=== PATIENT | male | born 1965 | race Caucasian/White ===

== ENCOUNTER 2019-01-28 12:52 | Emergency (ER) | payer MEDICARE, MEDICAID, SELFPAY ==
--- NOTE | ~2019-01-28 | XR_ITS ---
EXAMINATION: XR ribs RT 2V w CXR 2V INDICATION: Cough and fever TECHNIQUE: Frontal and lateral views of the chest and 3 views of the right ribs were obtained. COMPARISON: 06/21/2018 FINDINGS: The lungs are free of acute opacities. There is no pleural effusion or pneumothorax. Median sternotomy wires and mediastinal surgical clips are seen, likely from prior coronary artery bypass g rafting. No displaced rib fracture is identified. The visualized bones and soft tissues are unremarka ble. IMPRESSION: 1. No acute cardiopulmonary abnormality or evidence of displaced rib fracture. Reviewed, dictated and finalized at location A. INED RAIL OPERATOR
[2019-01-28 13:11] VITALS: BP 169/104; PULSE 123; RESP 23; TEMP 36.3; O2SAT 97
[2019-01-28 13:44] LABS: Basophils Percent Auto 0.3 % (0.2-1.2); Eosinophils Absolute Auto 0.1 K/mm3 (0-0.3); Eosinophils Percent Auto 1.1 % (0-4.4); Hematocrit 44.3 % (42.0-52.0); Hemoglobin 15.3 g/dL (14.0-18.0); Immature Granulocyte Absolute 0.05 K/mm3 (0.00-0.031); Immature Granulocyte Percent A 0.5 % (0-0.5); Lymphocytes Absolute Auto 2.24 K/mm3 (0.9-3.2); Lymphocytes Percent Auto 21.2 % (18.3-44.2); Mean Corpuscular HGB Conc 34.5 g/dl (32-36); Mean Corpuscular Hemoglobin 32.8 pg (26-34); Mean Corpuscular Volume 94.9 fl (80-100); Mean Platelet Volume 11.6 fl (7.4-10.4); Monocytes Percent Auto 9.8 % (2.6-8.5); Neutrophils Absolute Auto 7.1 K/mm3 (1.3-6.7); Neutrophils Percent Auto 67.1 % (45.5-73.1); Platelet Count Result 109 k/mm3 (150-375); Red Blood Count 4.67 M/mm3 (4.6-6.20); White Blood Count 10.6 K/mm3 (4.5-10.0)
[2019-01-28 13:55] LABS: Alanine Aminotransferase 44 U/L (4-50); Albumin Level 4.6 g/dL (3.5-5.1); Alkaline Phosphatase 95 U/L (38-126); Aspartate Amino Transferase 78 U/L (17-59); Bilirubin,Total 1.5 mg/dL (0.2-1.3); Blood Urea Nitrogen 24 mg/dL (9-20); Calcium 10.1 mg/dL (8.4-10.2); Carbon Dioxide 24 mmol/L (22-30); Chloride 89 mmol/L (98-107); Estimated Glomerular Filt Rate > 60; Glucose 72 mg/dL (75-110); Sodium 132 mmol/L (137-145)
[2019-01-28 15:18] VITALS: BP 134/82; PULSE 117; RESP 21; O2SAT 99
--- NOTE | 2019-01-28 15:35 | ED.GENADULT ---
HPI - General Adult General Chief complaint: Weakness Stated complaint: COLD S/SX Time Seen by Provider: 01/28/19 15:15 Source: patient and RN notes reviewed Mode of arrival: ambulatory Limitations: no limitations History of Present Illness HPI narrative: Pt is a 53 y/o male who presents to the ED with c/o a fall which occurred 2 days ago. Pt states he tripped and fell onto a coffee table, which is causing rib pain. Pt denies knowing if he lost consciousness or not. He reports diaphoresis, chills, a subjective fever, rhinorrhea, a productive cough which is baseline for him, LUQ ABD pain, vomiting, and diarrhea, but denies a sore throat, changes in vision, changes in hearing, or a headache. Pt also reports having hallucinations. He states he will see something out of his peripheral, but when he looks over to see what it is, there is nothing actually there. He denies having any suicidal or homicidal thoughts. Pt reports having a prosthetic hip surgery, a nasal surgery, and a CABG. He reports drinking occasionally, but denies heavily since 2010 and also denies the use of any drugs. complaint: A fall Onset (ago): day(s) (occurred 2 days ago) Radiation: non-radiation Associated symptoms: cough (productive), diaphoresis, fever/chills, nausea/vomiting and other (rhinorrhea; LUQ ABD pain; diarrhea; rib pain) Related Data Home Medications Medication Instructions Recorded Confirmed aspirin 81 mg tablet,delayed 81 mg PO DAILY 01/17/19 release furosemide 20 mg tablet 20 mg PO DAILY tablet 01/17/19 metoprolol tartrate 25 mg tablet 25 mg PO BID tablet 01/17/19 multivitamin 1 tablet PO DAILY 01/17/19 atorvastatin 01/28/19 Allergies Allergy/AdvReac Type Severity Reaction Status Date / Time No Known Allergies Allergy Verified 07/15/18 09:19 Review of Systems Review of Systems: All systems reviewed & are unremarkable except as noted in HPI and below Constitutional: Constitutional: Reports chills and Reports fever(s) (subjective) Eyes: Eyes: Denies change in vision ENT: Reports hearing normal (denies changes in hearing), Reports nasal discharge and Denies sore throat Cardiovascular: Cardiovascular: Reports diaphoresis Respiratory: Respiratory: Reports cough (productive cough which is normal for his baseline) Gastrointestinal: Gastrointestinal: Reports abdominal pain (LUQ ABD pain), Reports diarrhea and Reports vomiting Musculoskeletal: Musculoskeletal: Reports other (rib pain) Neurologic: Denies headache(s) Psychiatric: Psychiatric: Denies homicidal ideation and Denies suicidal ideation PMFSH Social History Social History Smoking status: Current every day smoker Tobacco type: cigarettes Second hand tobacco smoke exposure: Yes Alcohol intake: never Gender identity (if verbalized by the patient): Male Exam Narrative: Exam Narrative: GENERAL: Well-appearing, well-nourished, and in no acute distress. HEAD: Normocephalic, atraumatic. ENT: Mucous membranes moist. CHEST: Clear to auscultation. No respiratory distress. No apparent trauma but mild discomfort to the right rib cage. HEART: Tachycardic and regular. Normal peripheral pulses. ABDOMEN: Soft, nontender, nondistended. EXTREMITIES: Normal range of motion. No edema. SKIN: Warm, dry, no rash. NEURO: Alert and oriented x3. PSYCH: No SI/HI, not responding to internal stimuli, reports seeing things at the corners of his eyes.. Course Course Emergency Course: Patient walked out of the ER, likely because he is not getting narcotic pain medication they continue to ask for. Patient is being aggressively hydrated. Blood work otherwise unremarkable. Vital Signs Vital signs: Vital Signs Temperature 97.4 F L 01/28/19 13:11 Pulse Rate 123 H 01/28/19 13:11 Respiratory Rate 23 H 01/28/19 13:11 Blood Pressure 169/104 H 01/28/19 13:11 Pulse Oximetry 97 01/28/19 13:11 Temperature 97.4 F L 1
[2019-01-28] MEDS: SODIUM CHLORIDE 0.9% IV 1,000 ML 999 ML IV CONT (16:05)
[2019-01-28 17:00] LABS: Add Urine Microscopic? YES; Appearance Urine Clear (Clear); Bilirubin Urine Negative (Negative); Blood Urine 1+ (Negative); Color Urine Yellow (Yellow); Glucose Urine UA Negative (Negative); Ketones Urine 2+ mg/dL (Negative); Leukocyte Esterase Ur Negative LEU/UL (Negative); Mucus Urine Rare /lpf; Nitrate Urine Negative (Negative); Protein Urine 1+ mg/dL (Negative); RBC Urine 0-2 /hpf (0-2); Specific Grav Ur 1.017 (1.001-1.035); Urobilinogen Urine Negative mg/dL (<2.0); WBC Urine 0-3
[2019-01-28 17:01] LABS: Amphetamine Screen Urine Negative (Negative); Barbiturate Screen Urine Negative (Negative); Benzodiazepines Screen Urine Negative (Negative); Cannabinoid Screen Urine Negative (Negative); Cocaine Screen Urine Negative (Negative); Methadone Screen Urine Negative (Negative); Opiate Screen Urine Positive (Negative); Phencyclidine Screen Urine Negative (Negative)
== END 2019-01-28 17:26 | disposition left against medical advice (07) ==
PROVIDERS: Emergency Medicine; Emergency Provider Emergency Medicine; PCP Family Medicine
DX: R07.81 Pleurodynia (principal); F17.210 Nicotine dependence, cigarettes, uncomplicated; Z95.1 Presence of aortocoronary bypass graft; R07.89 Other chest pain
CPT/HCPCS: 36415; 71046; 71100; 80053; 80307; 81001; 85025; 87804; 96360; 99283; J7030

== ENCOUNTER 2019-03-28 12:05 | Outpatient (CLI) | payer MEDICARE, SELFPAY ==
--- NOTE | ~2019-03-28 | US_ITS ---
EXAMINATION: US biopsy lymph node DATE: 03/28/2019 12:59 INDICATION: Right supraclavicular lymphadenopathy. TECHNIQUE: The procedure including the risks, benefits, and alternatives was discussed with the patie nt. Risks discussed included bleeding and infection. The patient understood the risks and agreed to p roceed. The skin overlying the right supraclavicular region was prepped and draped in usual sterile f ashion. Anesthetic was administered with 1% lidocaine subcutaneously. An 18 gauge core biopsy needl e was then used to obtain 3 core biopsy specimens under continuous sonographic guidance. The entry si te was cleaned and dressed. There were no immediate complications. FINDINGS: Ultrasound images demonstrate the needle in a large right supraclavicular adrian mass. IMPRESSION: 1. Ultrasound-guided core needle biopsy of a right supraclavicular lymph node. Reviewed, dictated and finalized at location A. RINTENDENT DISTRIBUTION
== END 2019-03-28 12:06 | disposition home or self-care (01) ==
PROVIDERS: PCP Family Medicine; Visit Provider Surgery
DX: R22.1 Localized swelling, mass and lump, neck (principal); R59.1 Generalized enlarged lymph nodes; C7A.8 Other malignant neuroendocrine tumors
CPT/HCPCS: 38505; 76942; 88305; 88342

== ENCOUNTER 2019-04-10 00:53 | Day surgery (SDC) | payer MEDICARE, MEDICAID, SELFPAY ==
[2019-04-06 08:59] VITALS: BMI 31.5
--- NOTE | ~2019-04-10 | XR_ITS ---
EXAMINATION: XR chest port-a-cath/central DATE: 04/10/2019 16:04 INDICATION: Port placement. TECHNIQUE: A single frontal view of the chest was obtained. COMPARISON: Chest 2 views 01/28/2019, chest CT 03/21/2019 FINDINGS: There is a mass in perihilar right upper lobe. A calcified left lung nodule is consistent w ith old granulomatous disease. There is mild atelectasis in left lower lung zone. No pleural effusion or pneumothorax. The heart size is normal. Median sternotomy wires and mediastinal surgical clips ar e seen, likely from prior coronary artery bypass grafting. There is a left internal jugular port with tip in left brachiocephalic vein. There is widening of the superior mediastinum, consistent with lym phadenopathy. IMPRESSION: 1. Port tip in left brachiocephalic vein. 2. Right lung upper lobe mass, consistent with primary bronchogenic carcinoma. 3. Mediastinal lymphadenopathy, consistent with metastatic disease. Reviewed, dictated and finalized at location A. CTOR OF CHANNEL MARKETING
--- NOTE | ~2019-04-10 | XR_ITS ---
EXAMINATION: XR fl guide central line place DATE: 04/10/2019 17:07 INDICATION: Port placement. TECHNIQUE: 5 intraoperative fluoroscopic views of the chest were obtained. I was not present. Fluoros copy exposure time was 55 seconds. COMPARISON: Chest single view 04/10/2019 FINDINGS: Median sternotomy wires and mediastinal surgical clips are seen, likely from prior coronary artery bypass grafting. There is a left internal jugular port with tip in left brachiocephalic vein. There is widening of the superior mediastinum, consistent with lymphadenopathy. IMPRESSION: 1. Port tip in left brachiocephalic vein. 2. Mediastinal lymphadenopathy, consistent with metastatic disease. Reviewed, dictated and finalized at location A. NESS PROCESS MODELER
--- NOTE | 2019-04-10 12:42 | ECG_ITS ---
Measurements Intervals [place] Rate: 99 P: 63 AL: 139 QRS: -5 QRSD: 157 T: 44 QT: 373 QTc: 481 Interpretive Statements SINUS RHYTHM RIGHT BUNDLE BRANCH BLOCK BORDERLINE ST-T WAVE ABNORMALITY- ANTEROLATERAL LEADS BASELINE ARTIFACT- I, II, AVR ABNORMAL ECG Electronically Signed On 04-10-2019 13:59:37 NURSE RN BSN by Marcelino Pope D.O.
[2019-04-10 13:18] LABS: Basophils Percent Auto 0.3 % (0.2-1.2); Eosinophils Percent Auto 0.3 % (0-4.4); Hematocrit 39.2 % (42.0-52.0); Hemoglobin 13.3 g/dL (14.0-18.0); Immature Granulocyte Absolute 0.05 K/mm3 (0.00-0.031); Immature Granulocyte Percent A 0.5 % (0-0.5); Lymphocytes Absolute Auto 1.48 K/mm3 (0.9-3.2); Lymphocytes Percent Auto 13.9 % (18.3-44.2); Mean Corpuscular HGB Conc 33.9 g/dl (32-36); Mean Corpuscular Hemoglobin 33.1 pg (26-34); Mean Corpuscular Volume 97.5 fl (80-100); Mean Platelet Volume 10.6 fl (7.4-10.4); Monocytes Absolute Auto 1.1 K/mm3 (0.1-0.6); Monocytes Percent Auto 10.4 % (2.6-8.5); Neutrophils Percent Auto 74.6 % (45.5-73.1); Platelet Count Result 246 k/mm3 (150-375); Red Blood Count 4.02 M/mm3 (4.6-6.20); Red Cell Distribution Width 14.5 % (11.5-14.5); White Blood Count 10.7 K/mm3 (4.5-10.0)
[2019-04-10 13:30] VITALS: BP 124/72; PULSE 95; RESP 20; TEMP 36.2; O2SAT 94
[2019-04-10 13:30] LABS: Prothrombin Time 12.5 Seconds (11.1-14.7)
--- NOTE | 2019-04-10 13:30 | WPDANESEPP ---
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 Patient Data Age: 53 Gender: M Height: 5 ft 10 in Weight: 97.8 kg Allergies Allergy/AdvReac Type Severity Reaction Status Date / Time No Known Allergies Allergy Verified 04/10/19 13:12 Home Medications Medication Instructions Recorded Confirmed Type aspirin 81 mg tablet,delayed 81 mg PO DAILY 01/17/19 04/10/19 History release metoprolol tartrate 25 mg tablet 25 mg PO BID tablet 01/17/19 04/10/19 History multivitamin 1 tablet PO DAILY 01/17/19 04/10/19 History atorvastatin 20 mg PO DAILY 01/28/19 04/10/19 History tramadol 50 mg tablet 50 mg PO Q4H PRN #90 tablet 03/24/19 04/10/19 Rx Laboratory Tests 04/10/19 04/10/19 12:38 12:38 WBC 10.7 K/mm3 H K/mm3 (4.5-10.0) RBC 4.02 M/mm3 L M/mm3 (4.6-6.20) Hgb 13.3 g/dL L g/dL (14.0-18.0) Hct 39.2 % L % (42.0-52.0) MCV 97.5 fl fl (80-100) MCH 33.1 pg pg (26-34) MCHC 33.9 g/dl g/dl (32-36) RDW 14.5 % % (11.5-14.5) Plt Count 246 k/mm3 D k/mm3 (150-375) MPV 10.6 fl H fl (7.4-10.4) Immature Gran % (Auto) 0.5 % % (0-0.5) Neut % (Auto) 74.6 % H % (45.5-73.1) Lymph % (Auto) 13.9 % L % (18.3-44.2) Chase % (Auto) 10.4 % H % (2.6-8.5) Eos % (Auto) 0.3 % % (0-4.4) Baso % (Auto) 0.3 % % (0.2-1.2) Lymph # (Auto) 1.48 K/mm3 K/mm3 (0.9-3.2) Chase # (Auto) 1.1 K/mm3 H K/mm3 (0.1-0.6) Eos # (Auto) 0.0 K/mm3 K/mm3 (0-0.3) Baso # (Auto) 0.0 K/mm3 K/mm3 (0.0-0.1) Abs Immat Gran (auto) 0.05 K/mm3 H K/mm3 (0.00-0.031) Absolute Neuts (auto) 8.0 K/mm3 H K/mm3 (1.3-6.7) Absolute Nucleated RBC 0.0 K/mm3 K/mm3 (0.0-0.012) Nucleated RBC % 0.0 % % (0.0-0.2) PT Pending INR Pending APTT Pending Patient hx anesthesia problems: none Family hx anesthesia problems: none PMFSH Past Medical History Medical History Anxiety and depression Atherosclerotic heart disease of [place] coronary artery with unspecified angina pectoris Benign essential hypertension COPD (chronic obstructive pulmonary disease) Depression History of heart attack DEVIN (obstructive sleep apnea) Other and unspecified hyperlipidemia Polyosteoarthritis, unspecified Tobacco use disorder Wheezing Surgical History Surgical History History of facial surgery facial reconstruction History of left hip replacement Hx of CABG triple bypass Family History Family History Father Hypertension Family history of lung cancer Patient's father is Mother Hypertension Family history of condition Family history of diabetes mellitus in first degree relative Family history of heart disease in male family member before age 55 Patient's mother is Family history of coronary artery disease [place] Other Cerebrovascular accident Diabetes mellitus Family history of arthritis Family history of malignant neoplasm Social History Social History Smoking status: Current every day smoker Tobacco type: cigarettes Second hand tobacco smoke exposure: Yes Alcohol intake: never Gender identity (if verbalized by the patient): Male Exam Day of Procedure 04/10/19 13:30
[2019-04-10 13:31] LABS: Partial Thromboplastin Time 31.9 SECONDS (22.3-36.8)
--- NOTE | 2019-04-10 13:34 | SUR.PREOP ---
pt presents w/difficulty ambulating/states he fell at home overnight Wednesday night/ bruising noted to mid upper chest above sternum
--- NOTE | 2019-04-10 14:06 | WPDANESEFPP ---
Anes - Eval Final PreProcedure Day of Procedure 04/10/19 14:06 Patient weight: overweight Heart: regular rate and rhythm Lungs: clear to auscultation Airway: Mallampati scale class II Neurological: alert and oriented Last oral intake: >/= 8 hours ASA classification: III Emergent: no Anesthetic plan: proceed Anesthesia type and monitoring: general GIVS and standard monitoring Informed Consent: The patient's anesthetic plan and its attendant risks and benefits were discussed with the patient/family/POA. Questions were solicited and answers provided to the satisfaction of the patient/family/POA.
--- NOTE | 2019-04-10 14:10 | WPDHPUPDATE1 ---
History and Physical Update Update Date/Time: 04/10/19 14:10 History and Physical has been reviewed, including an updated exam of the patient. There are changes in the patient's condition. Patient has not yet been in to see Dr. Alejandro to discuss the neuroendocrine tumor that was discovered by core biopsy of his supraclavicular area last week. Also, he tripped on the steps last weekend and fell and bruised his anterior sternum. He has some bruising on the skin anterior left chest but no other changes. Risks, benefits, and alternatives of placement of a Port-A-Cath me the left jugular route have been discussed and questions answered. Patient agrees to proceed with procedure.
[2019-04-10] MEDS: LACTATED RINGERS 1,000 ML 30 ML IV CONT (14:26)
[2019-04-10] MEDS: ceFAZolin 2 GM/D5W 50 ML 2 GM/50 ML BAG IVPB (14:35)
[2019-04-10] MEDS: BUPIVACAINE/EPINEPHRINE 0.5% 30 ML VIAL 17 ML INFILTRATE (15:04)
--- NOTE | 2019-04-10 15:19 | SUR.OPER ---
SMART PORT LEFT SIDE/LOT [id number], EXP 10-29-21.
[2019-04-10] MEDS: HEPARIN SODIUM 5,000 UNITS/ML VIAL 5000 UNITS IRRIGATION (15:28)
--- NOTE | 2019-04-10 15:48 | PM.PROC ---
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 Patient was brought to the operating room. He was placed supine on the operating table and general IV sedation was induced. The nurse lieutenant colonel provided oxygen and IV sedation. Patient's head was carefully turned to the right side while in the supine position and the patient's entire left neck and anterior chest on both sides was prepped and draped in the usual sterile fashion. Following this the appropriate time-out was completed confirming procedure and patient. We confirmed that all the needed equipment was present in the room. Following this the ultrasound probe was draped into the field and using the probe we carefully identified the carotid artery and jugular vein on the left neck. I marked the skin directly over the Lt. internal jugular vein. Following this, using the continuous ultrasound guidance, a Cook needle was placed through the skin into this vein. I then was able to draw back good dark blood. Once this was completed a guidewire using a J-tip was advanced through the needle and then the needle and the guidewire cover were withdrawn. C-arm fluoroscopy was used to confirm that the guidewire was nicely in the central venous system. Once this was confirmed with the C - arm, I preceded on by making the pocket for the port on the patient's anterior left chest approximately 3 centimeters below the clavicle overlying the chest wall. Local anesthetic was infiltrated into the skin where there was a transverse incision marked out. Incision was made and we made a pocket inferior to the incision with just a little dissection superior. The Smart port was tried in the pocket and seemed to fit well. Following this the catheter which had been placed on a tunneling device was tunneled from the port site on the anterior right chest up to the right neck where a small incision had been made with an #11 blade knife next to the guide wire. Then the catheter was pulled through so that we would have 20 centimeters to put into the central venous system once the dilation took place. Following this we placed the dilator and sheath over the guidewire in the jugular vein and carefully dilated the tract into the central venous system. The guidewire and dilator were then removed, carefully covering the end of the sheath to prevent air embolus. The end of the catheter which had been cut off straight across and the tip checked was then inserted into the sheath and into the neck. I then carefully pulled the 2 arms of the tear-away sheath away as the per diem physical therapist assistant held the catheter in position with a DeBakey forceps. Following this we checked the position of the catheter with C-arm fluoroscopy confirming that the tip seemed to be in the proximal superior vena cava. Since I knew this patient had some mediastinal lymphadenopathy I did not try to get the catheter to go down further into the superior vena cava. We checked and had good blood return upon aspiration of the catheter after maneuvering it slightly. I felt that it was in good position and so the rest of the catheter was pulled down toward the feet into the port site. We then measured to the appropriate position to cut the catheter to attach it to the port stem. Then the connector sealing device for the catheter port was placed onto the catheter and then the catheter cut to the appropriate length and inserted onto the stem of the port. Then the connector was advanced onto the stem over the catheter sealing it to the port. A single 3- 0 Prolene suture was also used during this to suture the port and to the underlying fat and fascia. Following this at one other site the port was sutured to the underlying fat and fascia with the 3-0 Proline. Both vera
[2019-04-10 15:52] VITALS: BP 141/80; PULSE 104; RESP 20; O2SAT 99
--- NOTE | 2019-04-10 16:01 | SUR.PHASEII ---
DR. VICKERS HERE TO SEE PT.
[2019-04-10 16:15] VITALS: BP 150/86; PULSE 99; RESP 20
[2019-04-10 16:43] VITALS: BP 122/48; PULSE 82; RESP 20
== END 2019-04-10 16:50 | disposition home or self-care (01) ==
PROVIDERS: Visit Provider Surgery
PROC: (CPT 36561; principal; 2019-04-10 14:30)
DX: C7A.8 Other malignant neuroendocrine tumors (principal); I10 Essential (primary) hypertension; I25.10 Atherosclerotic heart disease of native coronary artery without angina pectoris; J44.9 Chronic obstructive pulmonary disease, unspecified; I25.2 Old myocardial infarction; G47.33 Obstructive sleep apnea (adult) (pediatric); F41.8 Other specified anxiety disorders; E78.5 Hyperlipidemia, unspecified; M19.90 Unspecified osteoarthritis, unspecified site; Z79.82 Long term (current) use of aspirin; Z95.1 Presence of aortocoronary bypass graft; F17.210 Nicotine dependence, cigarettes, uncomplicated
CPT/HCPCS: 36561; 36415; 77001; 85025; 85610; 85730; 93005; C1788; J0690; J1644; J2250; J2704; J3010; J7030; J7120

== ENCOUNTER 2019-04-17 12:04 | Emergency (ER) | payer MEDICARE, MEDICAID, SELFPAY ==
--- NOTE | ~2019-04-17 | XR_ITS ---
EXAMINATION: XR ribs LT 2V w CXR 2V EXAM DATE: 04/17/2019 13:12 INDICATION: Initial encounter following injury, with pain of the left lower rib. TECHNIQUE: Frontal projection of the upper left ribs, frontal projection of the lower left ribs, obli que projection of the left ribs, frontal and lateral chest x-ray(s) for interpretation. Comparison is made to prior examination from 04/10/2019. FINDINGS: There are acute left seventh eighth and ninth rib fractures laterally. There is no pneumoth orax suspected. There is a left-sided Chemo-Port, IJ approach. Tip is horizontally oriented at the brachycephalic junction, unchanged from prior study. Sternotomy wires are present without findings t o suggest sternal dehiscence. Right suprahilar approximately 2 cm masslike opacity identified. IMPRESSION: 1. Acute left seventh-ninth rib fractures. 2. Right suprahilar mass. Reviewed, dictated and finalized at location A. ERICAN INDIAN POLICY SPECIALIST
[2019-04-17 12:30] VITALS: BP 104/58; PULSE 105; RESP 20; TEMP 36.2; O2SAT 100
--- NOTE | 2019-04-17 13:40 | ED.FALL ---
HPI - Fall General Chief Complaint: Fall Stated Complaint: , FALL, LEFT SIDED RIB PAIN Time Seen by Provider: 04/17/19 13:27 Source: patient and RN notes reviewed Mode of arrival: ambulatory Limitations: no limitations History of Present Illness HPI Narrative: Pt is a 53 y/o male who presents to the ED left rib cage pain which began 10 days ago and has been progressively worsening. Pt states he had a triple bypass surgery done approximately 3 months ago. He reports he tripped and fell down 3 steps about 10 days ago. He reports he fell on his rib cage which is causing the pain. He also reports SOB associated with the pain, but denies pain anywhere else in his body. Pt reports his PCP is Dr. Brown located in [place], [place]. He reports being on Hydrocodone medication for his small cell lung cancer. MD complaint: fall Onset (ago): day(s) (10 days ago) Fall from: down stairs (#) (tripped and fell down 3 steps of stairs) Fall witnessed: no Place fall occurred: home Loss of consciousness: none Prolonged down time: unclear Symptoms prior to fall: none Context: tripped/slipped Location of injury: chest (left rib cage) Associated symptoms (after fall): shortness of breath Related Data Home Medications Medication Instructions Recorded Confirmed aspirin 81 mg tablet,delayed 81 mg PO DAILY 01/17/19 04/10/19 release metoprolol tartrate 25 mg tablet 25 mg PO BID tablet 01/17/19 04/10/19 multivitamin 1 tablet PO DAILY 01/17/19 04/10/19 atorvastatin 20 mg PO DAILY 01/28/19 04/10/19 fluoxetine mg 04/17/19 Allergies Allergy/AdvReac Type Severity Reaction Status Date / Time No Known Allergies Allergy Verified 04/17/19 14:05 Review of Systems Review of Systems: All systems reviewed & are unremarkable except as noted in HPI and below Constitutional: Constitutional: Denies other (pain anywhere else in his body) Respiratory: Respiratory: Reports dyspnea and Reports other (left rib cage pain) [facility] Past Medical History Medical History (Updated 04/17/19 @ 13:42 by April Loo) Anxiety and depression Atherosclerotic heart disease of [place] coronary artery with unspecified angina pectoris Benign essential hypertension COPD (chronic obstructive pulmonary disease) Depression History of heart attack DEVIN (obstructive sleep apnea) Other and unspecified hyperlipidemia Polyosteoarthritis, unspecified Small cell lung cancer Tobacco use disorder Wheezing Surgical History Surgical History History of facial surgery facial reconstruction History of left hip replacement Hx of CABG triple bypass Social History Social History Smoking status: Current every day smoker Tobacco type: cigarettes Second hand tobacco smoke exposure: Yes Alcohol intake: never Gender identity (if verbalized by the patient): Male Exam Narrative: Exam Narrative: GENERAL: Well-appearing, well-nourished, and in no acute distress. HEAD: Normocephalic, atraumatic. EYES: PERRLA and EOMI. ENT: Nares clear, Mucous membranes moist. NECK: Supple. CHEST: Clear to auscultation. No respiratory distress.tender on left lower costal area HEART: Regular rate and rhythm. No murmur heard. Normal peripheral pulses. ABDOMEN: Soft, non tender, non distended, normal active bowel sounds. EXTREMITIES: Normal range of motion. No edema. SKIN: Warm, dry, no rash. NEURO: No focal deficits. Alert and oriented x3. PSYCH: Normal mood and affect. Const: General: no acute distress Course Course Emergency Course: Inform patient about his x-ray findings. Patient states that he is scheduled to see Dr. Alejandro for his chemotherapy, I did notify Dr. Alejandro about his x-ray findings. I advised him to continue taking his home pain medication . Consultations Consultation #1: Discussed case and findings with Dr. Alejandro. Pt can be discharged with pain medication and
[2019-04-17] MEDS: MORPHINE SULFATE 4 MG/ML INJ IV PUSH (13:57)
[2019-04-17 14:01] VITALS: BP 118/65; PULSE 93; RESP 24; TEMP 37.1
[2019-04-17 14:30] VITALS: BP 96/56; PULSE 95; RESP 20; O2SAT 94
[2019-04-17 15:23] VITALS: BP 107/60; PULSE 22; RESP 20; TEMP 36.6; O2SAT 99
== END 2019-04-17 15:30 | disposition home or self-care (01) ==
PROVIDERS: Emergency Provider Family Medicine
DX: S22.42XA Multiple fractures of ribs, left side, initial encounter for closed fracture (principal); C34.90 Malignant neoplasm of unspecified part of unspecified bronchus or lung; I10 Essential (primary) hypertension; J44.9 Chronic obstructive pulmonary disease, unspecified; G47.33 Obstructive sleep apnea (adult) (pediatric); M19.90 Unspecified osteoarthritis, unspecified site; I25.2 Old myocardial infarction; F41.9 Anxiety disorder, unspecified; E78.49 Other hyperlipidemia; Z96.642 Presence of left artificial hip joint; I25.119 Atherosclerotic heart disease of native coronary artery with unspecified angina pectoris; F32.9 Major depressive disorder, single episode, unspecified; Z79.82 Long term (current) use of aspirin; Z95.1 Presence of aortocoronary bypass graft; F17.210 Nicotine dependence, cigarettes, uncomplicated; W10.9XXA Fall (on) (from) unspecified stairs and steps, initial encounter
CPT/HCPCS: 71045; 71101; 96374; 99284; A9270; J2270